=== PATIENT | male | born 2000 | race Hispanic/Latino ===

== ENCOUNTER 2021-03-08 09:46 | Emergency (ER) | payer OTHER ==
[~2021-03-08] VITALS: Ht 162.6 cm; Wt 59.2 kg
[2021-03-08] MEDS ORDERED: ACETAMINOPHEN 500 MG TAB PO ONE (09:55)
[2021-03-08] MEDS ORDERED: IBUPROFEN 600MG TAB PO ONE (09:55)
[2021-03-08] MEDS ORDERED: NS 1,000 ML IV ONE (09:55)
[2021-03-08] MEDS ORDERED: ONDANSETRON 4MG/2ML VIAL IV ONE (10:00)
[2021-03-08 10:23] LABS: BASO % 0.4 % (0.0-1.0); EOS # 0.1 10^3/uL (0.0-0.5); EOS % 0.8 % (0.0-3.0); HEMATOCRIT 44.4 % (42.0-52.0); HEMOGLOBIN 15.5 g/dl (13.5-17.5); LYMPH # 0.7 10^3/uL (1.5-5.0); MEAN CORPUSCULAR HEMOGLOBIN 30.6 pg (27.0-33.0); MEAN CORPUSCULAR HGB CONC 34.9 g/dl (32.0-36.5); MEAN CORPUSCULAR VOLUME 87.7 fl (80.0-96.0); MONO % 10.4 % (2.0-8.0); NEUTROPHILS # 7.5 10^3/uL (1.5-8.5); PLATELET COUNT, AUTOMATED 214 10^3/uL (150-450); RED BLOOD COUNT 5.06 10^6/uL (4.30-6.10); WHITE BLOOD COUNT 9.3 10^3/uL (4.0-10.0)
[2021-03-08 11:00] LABS: ALBUMIN 4.7 GM/DL (3.2-5.2); ALT/SGPT 19 U/L (12-78); BILIRUBIN,TOTAL 1.1 MG/DL (0.2-1.0); BLOOD UREA NITROGEN 12 MG/DL (7-18); CALCIUM LEVEL 9.7 MG/DL (8.5-10.1); CARBON DIOXIDE LEVEL 30 MEQ/L (21-32); CHLORIDE LEVEL 99 MEQ/L (98-107); CREATININE FOR GFR 1.04 MG/DL (0.70-1.30); GLOMERULAR FILTRATION RATE > 60.0 (>60); GLUCOSE, FASTING 99 MG/DL (70-100); POTASSIUM SERUM 4.1 MEQ/L (3.5-5.1); SODIUM LEVEL 135 MEQ/L (136-145); TOTAL PROTEIN 7.9 GM/DL (6.4-8.2)
[2021-03-08 11:03] LABS: RSV AMPLIFICATION NEGATIVE (NEGATIVE)
[2021-03-08 12:20] LABS: MONO SCRN NEGATIVE (NEGATIVE)
[2021-03-08] MEDS ORDERED: ZOFR4TAB16 PO (13:22)
[2021-03-08 13:24] VITALS: BP 124/56
== END 2021-03-08 13:31 | disposition home or self-care (01) ==
LOC: M ED 09:46
DX: E86.0 Dehydration (principal)
CPT/HCPCS: 80053; 81001; 83605; 85025; 86308; 87040; 87631; 96361; 96374; 99284; J2405

== ENCOUNTER 2021-07-28 08:45 | Emergency (ER) | payer OTHER ==
[~2021-07-28] VITALS: Ht 162.6 cm; Wt 58.2 kg
[~2021-07-28 08:45] MED LIST: ZOFR4TAB16 PO
[2021-07-28] MEDS ORDERED: NAPR-837 PO (10:37)
[2021-07-28 10:41] VITALS: BP 117/71
== END 2021-07-28 10:44 | disposition home or self-care (01) ==
LOC: M ED 08:45
DX: S43.51XA Sprain of right acromioclavicular joint, initial encounter (principal); X58.XXXA Exposure to other specified factors, initial encounter; Y92.89 Other specified places as the place of occurrence of the external cause; Y93.61 Activity, american tackle football